=== PATIENT | male | born 1970 | race Two or more races ===

== ENCOUNTER 2018-01-14 17:59 | Emergency (ER) | payer BC, OTHER ==
--- NOTE | 2018-01-14 18:42 | EDM.PDOC ---
ED HPI GENERAL MEDICAL PROBLEM - General Chief Complaint: Genitourinary Problem Stated Complaint: TROUBLE PASSING KIDNEY STONE Time Seen by Provider: 01/14/18 18:41 Source of Information: Reports: Patient History Limitations: Reports: No Limitations - History of Present Illness INITIAL COMMENTS - FREE TEXT/NARRATIVE: 47-year-old male presents to the ED with trouble voiding. For the last 2 weeks she's been having intermittent flank pain which she believed was secondary to kidney stones which he has passed many in the past. He felt it pass from his bladder into his penile urethra this morning with first void. Since then he's had to push terribly hard and bear down to get any water or urine output. Therefore peers the stone is become impacted in the penile or prostatic urethra. He has noted intermittent blood in his urine off and on for the last 2 weeks and believed he was passing a stone. No associated fever chills nausea or vomiting. She can feel the stone in his penile urethra right at the base of the shaft but is too painful to move. This has never occurred to him in the past. Onset: Today Onset Date: 01/14/18 Onset Time: 06:00 Duration: Hour(s): Location: Reports: Pelvis (Pain in his penile shaft with difficulty voiding. Squeeze out only a small amount of urine at a time) Severity: Moderate Improves with: Reports: None Worsens with: Reports: None Context: Reports: Other ([place] a stone he believes pass from his bladder into his penile urethra this morning upon first void but the stone did not come out.) . Denies: Activity, Exercise, Lifting, Sick Contact, Trauma Associated Symptoms: Reports: Other (Continued feeling of dysuria and need to void but unable to pass his water unless he bears down very hard he can get of it of urine out.) Treatments LEADERSHIP DEVELOPMENT CONSULTANT: Reports: Other (see below) (None.) - Related Data Allergies Allergy/AdvReac Type Severity Reaction Status Date / Time No Known Allergies Allergy Verified 01/14/18 18:10 Home Meds: Home Meds . [No Known Home Meds] 01/14/18 [History] Past Medical History Genitourinary History: Reports: Renal Calculus Endocrine/Metabolic History: Reports: Diabetes, Type I Social & Family History - Tobacco Use Smoking Status *Q: Current Every Day Smoker Years of Tobacco use: 28 Packs/Tins Daily: 1 - Recreational Drug Use Recreational Drug Use: No - Living Situation & Occupation Living situation: Reports: (But legally .) Occupation: Employed ED ROS GENERAL - Review of Systems Review Of Systems: See Below Constitutional: Reports: No Symptoms HEENT: Reports: No Symptoms Respiratory: Reports: No Symptoms Cardiovascular: Reports: No Symptoms Endocrine: Reports: No Symptoms GI/Abdominal: Reports: No Symptoms : Reports: Dysuria, Urgency, Other (Pain in his penis.) Musculoskeletal: Reports: No Symptoms Skin: Reports: No Symptoms ED EXAM, RENAL/ - Physical Exam Exam: See Below Exam Limited By: No Limitations General Appearance: Alert, WD/WN, No Apparent Distress Respiratory/Chest: No Respiratory Distress, Lungs Clear, Normal Breath Sounds Cardiovascular: Normal Peripheral Pulses, Regular Rate, Rhythm, No Edema, No Murmur GI/Abdominal: Normal Bowel Sounds, Soft, Non-Tender, No Organomegaly, No Abnormal Bruit, Pelvis Stable, Tender (Slightly tender suprapubically with a fullness.), Other (Obese abdomen. Limits ability to palpate solid organs.) (Male) Exam: Other (I can feel a palpable stone in the base of the shaft of his penis on slight invagination of the superior aspect of the scrotum.) Back Exam: Normal Inspection, Full Range of Motion. No: CVA Tenderness (L), CVA Tenderness (R) Extremities: Normal Inspection, Normal Range of Motion, Non-Tender, No Pedal Edema Neurological: Alert, Oriented, CN II-XII Intact, Normal Cognition, Normal Gait Course - Vital Signs Last Recorded V/S: Last Vital Signs Temp 36.8 C 01/14/18 18:10 Pulse 87 01/14/18 18:10 Resp 18 01/14/18 20:49 BP 141/95 H 01/14/18 18:10 Pulse Ox 98 01/14/18 20:49 - Orders/Labs/Meds Orders: Active Orders 24 hr Category Date Time Status Pelvis 1V or 2V [CR] Stat Exams 01/14/18 18:48 Taken Lactated Ringers [Ringers, Lactated] 1,000 ml Med 01/14/18 20:00 Active IV ASDIRECTED Medication Orders Lactated Ringer's (Ringers, Lactated) 1,000 mls @ 75 mls/hr IV ASDIRECTED SHIRLEY Last Admin: 01/14/18 20:15 Dose: 75 mls/hr Labs: Laboratory Tests 01/14/18 01/14/18 01/14/18 Range/Units 18:40 20:40 20:40 WBC 14.70 H (4.23-9.07) K/mm3 RBC 4.43 L (4.63-6.08) M/mm3 Hgb 13.8 (13.7-17.5) gm/L Hct 39.4 L (40.1-51.0) % MCV 88.9 (79.0-92.2) fl MCH 31.2 (25.7-32.2) pg MCHC 35.0 (32.2-35.5) g/dl RDW Std Deviation 42.0 (35.1-43.9) fL Plt Count 276 (163-337) K/mm3 MPV 9.6 (9.4-12.3) fl Neutrophils % (Manual) 66 H (40-60) % Band Neutrophils % 0 (0-10) % Lymphocytes % (Manual) 25 (20-40) % Atypical Lymphs % 0 % Monocytes % (Manual) 8 (2-10) % Eosinophils % (Manual) 1 (0.8-7.0) % Basophils % (Manual) 0 L (0.2-1.2) Platelet Estimate Adequate RBC Morph Comment Normal Sodium 139 (136-145) mEq/L Potassium 3.8 (3.5-5.1) mEq/L Chloride 102 (98-107) mEq/L Carbon Dioxide 27 (21-32) mEq/L Anion Gap 13.8 (5-15) BUN 11 (7-18) mg/dL Creatinine 0.8 (0.7-1.3) mg/dL Est Cr Clr Drug Dosing 115.38 mL/min Estimated GFR (MDRD) > 60 (>60) mL/min BUN/Creatinine Ratio 13.8 L (14-18) Glucose 161 H (74-106) mg/dL Calcium 8.6 (8.5-10.1) mg/dL Total Bilirubin 0.6 (0.2-1.0) mg/dL AST 14 L (15-37) U/L ALT 27 (16-63) U/L Alkaline Phosphatase 86 (46-116) U/L Total Protein 7.1 (6.4-8.2) g/dl Albumin 3.7 (3.4-5.0) g/dl Globulin 3.4 gm/dL Albumin/Globulin Ratio 1.1 (1-2) Urine Color Yellow (Yellow) Urine Appearance Clear (Clear) Urine pH 6.0 (5.0-8.0) Ur Specific [place] 1.025 (1.005-1.030) Urine Protein 1+ H (Negative) Urine Glucose (UA) 1+ H (Negative) Urine Ketones Negative (Negative) Urine Occult Blood 2+ H (Negative) Urine Nitrite Negative (Negative) Urine Bilirubin Negative (Negative) Urine Urobilinogen 0.2 (0.2-1.0) Ur Leukocyte Esterase 2+ H (Negative) Urine RBC 30-40 H (0-5) /hpf Urine WBC 40-50 H (0-5) /hpf Ur Epithelial Cells 5-10 H (0-5) /hpf Urine Bacteria Many H (FEW) /hpf Urine Mucus Many H (FEW) /hpf Meds: Medications Generic Name Dose Route Start Last Admin Trade Name Frebradly PRN Reason Stop Dose Admin Lactated Ringer's 1,000 mls @ 75 mls/hr 01/14/18 20:00 01/14/18 20:15 Ringers, Lactated IV 75 mls/hr ASDIRECTED SHIRLEY Administration Discontinued Medications Generic Name Dose Route Start Last Admin Trade Name Freq PRN Reason Stop Dose Admin Fentanyl Confirm 01/14/18 20:11 Sublimaze Administered 01/14/18 20:12 Dose 100 mcg .ROUTE .STK-MED ONE Lidocaine HCl Confirm 01/14/18 20:14 Xylocaine-Mpf 1% Administered 01/14/18 20:15 Dose 4 mls @ as directed .ROUTE .STK-MED ONE Ketamine HCl Confirm 01/14/18 20:17 Ketalar Administered 01/14/18 20:18 Dose 500 mg .ROUTE .STK-MED ONE Lidocaine HCl 5 ml 01/14/18 18:47 01/14/18 18:55 Xylocaine 2% Jelly TOP 01/14/18 18:48 Not Given ONETIME ONE Lidocaine HCl Confirm 01/14/18 18:53 01/14/18 19:23 Xylocaine 2% Jelly Administered 01/14/18 18:54 Not Given Dose 10 ml .ROUTE .STK-MED ONE Lidocaine HCl 10 ml 01/14/18 18:55 01/14/18 18:55 Xylocaine 2% Jelly MUCMEM 01/14/18 18:56 10 ml ONETIME ONE Administration Lidocaine HCl 10 ml 01/14/18 19:17 01/14/18 19:19 Xylocaine 2% Jelly MUCMEM 01/14/18 19:18 10 ml ONETIME ONE Administration Metoclopramide HCl Confirm 01/14/18 20:14 Reglan Administered 01/14/18 20:15 Dose 10 mg .ROUTE .STK-MED ONE Midazolam HCl Confirm 01/14/18 20:11 Versed 1 Mg/Ml Administered 01/14/18 20:12 Dose 2 mg .ROUTE .STK-MED ONE Propofol Confirm 01/14/18 20:12 Diprivan 20 Ml Administered 01/14/18 20:13 Dose 200 mg .ROUTE .STK-MED ONE Propofol Confirm 01/14/18 20:13 Diprivan 20 Ml Administered 01/14/18 20:14 Dose 200 mg .ROUTE .STK-MED ONE - Radiology Interpretation Free Text/Narrative:: 47-year-old male arrives in the ED with trouble voiding. He has to bear down extremely hard to get any urine out since 0600 hrs. this morning when he had his first void when he will awoke. Patient has had back pain off and on for the last 2 weeks simply to his passing a stone. He's had kidney stones many times in the past. He's noticed blood in his urine intermittently. This morning upon the first void he felt like the stone had come from his bladder and wedged into his penile urethra. Says really all day he is put up with urgency and dysuria but has been unable unable to pass the stone. Michele plenty of fluids. He can feel the stone at the base of the shaft of his penis which means it's distal to the prostatic urethra. Plan x-ray of his pelvis to include the penis to be done to see how large the stone is. - Re-Assessments/Exams Free Text/Narrative Re-Assessment/Exam: 01/14/18 19:15: Tone is about 8.1 x 8.6 mm and is round in appearance distal to the prostate on plain film. Plan will be to anesthetize the penile urethra with viscous lidocaine and see if I can pass a #10 or 12 catheter past the stone and inflate the balloon and pull the stone out. 01/14/18 19:58 attempts to pass a 10 or 12 catheter failed as it is coiled up against the stone. Was also quite uncomfortable for the patient in spite of filling the urethra is much as possible with viscous lidocaine. I will therefore call anesthesia to come and see if they can provide some conscious sedation so that I might be able to milk the stone out of the prostatic urethra by hand wind a more firmer coud-tip catheter to pass by the stone when he is relaxed and again pull the stone out. Failing this he will require urological consultation and management with likely need to pursue stone back into the bladder and crush it and remove the pieces. 01/14/18 20:20: Even with the aid of CO[employer] propofol to provide sedation I was unable to move the stone wedged within the penile urethra. By invaginating this appear part of the scrotum I can easily feel the stone that I was in the unable to budge it on multiple attempts. Attempted passage 14-gauge coud tipped catheter with me holding the stone in place also failed as the catheter just coiled when it struck the stone. It is therefore severely impacted. I will therefore make arrangements for him to travel to [facility] in [place] for urology consultation. 01/14/18: 20:30: I spoke with the clinical coordinator at [facility] who then put me in contact with Dr. Nguyễn-- urologist. He agrees that due to urinary retention that he needs to come to [place] for stone removal. He is to travel to the ED and then likely directly to the OR. I will therefore make ground transportation arrangements. This may be somewhat time consuming as our current [facility] ambulance is already in [place] on another transfer. If a second cruise not available then I will have to call [facility] to provide transport which will add another half an hour on to the trip. 01/14/18 21:00: Patient is alert and oriented. He has no recollection of undergoing any procedure. Advised him that we are unsuccessful in that there is at least 750 mils of urine in his bladder on ultrasound. He will therefore need need to travel by a months to [place] for urology consultation and he is in full agreement. Nurse will be written for transport. Placed a urinal between his legs because of bladder spasm intermittently will produce small quantities of urine. He becomes much worse he can receive Dilaudid 1 mg IV and Zofran 4 mg IV. His IV of course was discontinued and is now saline lock. Departure - Departure Time of Disposition: 21:48 Disposition: DC/Tfer to [facility] 02 Clinical Impression: Urinary tract obstruction by kidney stone - Discharge Information Referrals: PCP,None [Primary Care Provider] - Forms: ED Department Discharge Additional Instructions: Patient transferred to [facility] per ambulance after he received conscious sedation here in the ED to try and remove an impacted stone in his penile urethra without success. Dr. Nguyễn-urologist has accepted care. Patient is to travel to the ED and plan will be to take him right to the OR for definitive management. - My Orders Last 24 Hours: My Active Orders 01/14/18 18:48 Pelvis 1V or 2V [CR] Stat 01/14/18 20:00 Lactated Ringers [Ringers, Lactated] 1,000 ml IV ASDIRECTED - Assessment/Plan Last 24 Hours: My Active Orders 01/14/18 18:48 Pelvis 1V or 2V [CR] Stat 01/14/18 20:00 Lactated Ringers [Ringers, Lactated] 1,000 ml IV ASDIRECTED - Problem List Review Problem List Initiated/Reviewed/Updated: No - My Orders Last 24 Hours: My Active Orders 01/14/18 18:48 Pelvis 1V or 2V [CR] Stat 01/14/18 20:00 Lactated Ringers [Ringers, Lactated] 1,000 ml IV ASDIRECTED - Assessment Assessment:: Attempts to pass a 10 [place] and a 12 [place] catheter with the aid of the urethra being anesthetized with lidocaine gel failed to pass by the obstruction and cause the patient a good deal of discomfort. COAT PRESSER came and attended the patient in the ED and provided conscious sedation by way of propofol which worked well to provide sedation. I was able to identify the stone at the base of his penile shaft by invaginating the superior aspect of the scrotum but I was unable to produce the stone in any fashion or form on multiple attempts. I did try pass a 14-gauge coud tipped catheter but again it coiled in front of the stone. Ultrasound reveals 750 mils of urine in his bladder. Patient will thus be transferred to urology services in [place]. - Plan Plan:: Transferred to [facility] for definitive urological management.
[2018-01-14] MEDS ORDERED: Lidocaine 2% Jelly 5 ML Tube TOP ONE (18:47)
[2018-01-14] MEDS ORDERED: Lidocaine 2% Jelly 10 ML Urojet ONE (18:53)
[2018-01-14] MEDS ORDERED: Lidocaine 2% Jelly 10 ML Urojet MUCMEM ONE ×2 (18:55→19:17)
[2018-01-14] MEDS ORDERED: Lactated Ringers 1,000 ML IV SCH (20:00)
[2018-01-14] MEDS ORDERED: fentaNYL 100 MCG/2 ML SDV ONE (20:11)
[2018-01-14] MEDS ORDERED: Midazolam 1 MG/ML 2 ML SDV ONE (20:11)
[2018-01-14] MEDS ORDERED: Propofol 200 MG/20 ML SDV ONE ×2 (20:12→20:13)
[2018-01-14] MEDS ORDERED: Lidocaine 1% 4 ML ONE (20:14)
[2018-01-14] MEDS ORDERED: Metoclopramide 10 MG/2 ML SDV ONE (20:14)
[2018-01-14] MEDS ORDERED: Ketamine 500 mg/10 ML MDV ONE (20:17)
--- NOTE | 2018-01-14 20:49 | PCM.PREANE ---
Preanesthetic Assessment - Anesthesia/Transfusion/Family Hx Anesthesia History: No Prior Anesthesia Family History of Anesthesia Reaction: No Transfusion History: No Prior Transfusion(s) - Review of Systems General: No Symptoms Pulmonary: Other (Smokes 1ppd) Cardiovascular: No Symptoms Gastrointestinal: No Symptoms Neurological: No Symptoms Other: Reports: Diabetes (Prediabetes controlled with diet.) - Physical Assessment NPO Status Date: 01/14/18 NPO Status Time: 08:00 O2 Sat by Pulse Oximetry: 98 Respiratory Rate: 18 Vital Signs: Last Vital Signs Temp 36.8 C 01/14/18 18:10 Pulse 87 01/14/18 18:10 Resp BP 141/95 H 01/14/18 18:10 Pulse Ox 98 01/14/18 18:10 Height: 1.75 m Weight: 123.831 kg ASA Class: 2 Mental Status: Alert & Oriented x3 Airway Class: Mallampati = 3 Dentition: Reports: Normal Dentition Thyro-Mental Finger Breadths: 2 Mouth Opening Finger Breadths: 2 ROM/Head Extension: Full Lungs: Clear to Auscultation, Normal Respiratory Effort Cardiovascular: Regular Rate, Regular Rhythm - Lab Values: Laboratory Last Values WBC 14.70 K/mm3 (4.23-9.07) H 01/14/18 20:40 RBC 4.43 M/mm3 (4.63-6.08) L 01/14/18 20:40 Hgb 13.8 gm/L (13.7-17.5) 01/14/18 20:40 Hct 39.4 % (40.1-51.0) L 01/14/18 20:40 MCV 88.9 fl (79.0-92.2) 01/14/18 20:40 MCH 31.2 pg (25.7-32.2) 01/14/18 20:40 MCHC 35.0 g/dl (32.2-35.5) 01/14/18 20:40 RDW Std Deviation 42.0 fL (35.1-43.9) 01/14/18 20:40 Plt Count 276 K/mm3 (163-337) 01/14/18 20:40 MPV 9.6 fl (9.4-12.3) 01/14/18 20:40 Urine Color Yellow (Yellow) 01/14/18 18:40 Urine Appearance Clear (Clear) 01/14/18 18:40 Urine pH 6.0 (5.0-8.0) 01/14/18 18:40 Ur Specific [place] 1.025 (1.005-1.030) 01/14/18 18:40 Urine Protein 1+ (Negative) H 01/14/18 18:40 Urine Glucose (UA) 1+ (Negative) H 01/14/18 18:40 Urine Ketones Negative (Negative) 01/14/18 18:40 Urine Occult Blood 2+ (Negative) H 01/14/18 18:40 Urine Nitrite Negative (Negative) 01/14/18 18:40 Urine Bilirubin Negative (Negative) 01/14/18 18:40 Urine Urobilinogen 0.2 (0.2-1.0) 01/14/18 18:40 Ur Leukocyte Esterase 2+ (Negative) H 01/14/18 18:40 Urine RBC 30-40 /hpf (0-5) H 01/14/18 18:40 Urine WBC 40-50 /hpf (0-5) H 01/14/18 18:40 Ur Epithelial Cells 5-10 /hpf (0-5) H 01/14/18 18:40 Urine Bacteria Many /hpf (FEW) H 01/14/18 18:40 Urine Mucus Many /hpf (FEW) H 01/14/18 18:40 - Allergies Allergies/Adverse Reactions: Allergies Allergy/AdvReac Type Severity Reaction Status Date / Time No Known Allergies Allergy Verified 01/14/18 18:10 - Acknowledgements Anesthesia Type Planned: MAC Pt an Appropriate Candidate for the Planned Anesthesia: Yes Alternatives and Risks of Anesthesia Discussed w Pt/Guardian: Yes Pt/Guardian Understands and Agrees with Anesthesia Plan: Yes PreAnesthesia Questionnaire Genitourinary History: Reports: Renal Calculus Endocrine/Metabolic History: Reports: Diabetes, Type I - SUBSTANCE USE Smoking Status *Q: Current Every Day Smoker Recreational Drug Use History: No - HOME MEDS Home Medications: Home Meds . [No Known Home Meds] 01/14/18 [History] - CURRENT (IN HOUSE) MEDS Current Meds: Current Medications Lactated Ringer's (Ringers, Lactated) 1,000 mls @ 75 mls/hr IV ASDIRECTED SHIRLEY Last Admin: 01/14/18 20:15 Dose: 75 mls/hr Discontinued Medications Fentanyl (Sublimaze) Confirm Administered Dose 100 mcg .ROUTE .STK-MED ONE Stop: 01/14/18 20:12 Lidocaine HCl (Xylocaine-Mpf 1%) Confirm Administered Dose 4 mls @ as directed .ROUTE .STK-MED ONE Stop: 01/14/18 20:15 Ketamine HCl (Ketalar) Confirm Administered Dose 500 mg .ROUTE .STK-MED ONE Stop: 01/14/18 20:18 Lidocaine HCl (Xylocaine 2% Jelly) 5 ml TOP ONETIME ONE Stop: 01/14/18 18:48 Last Admin: 01/14/18 18:55 Dose: Not Given Lidocaine HCl (Xylocaine 2% Jelly) Confirm Administered Dose 10 ml .ROUTE .ST- MED ONE Stop: 01/14/18 18:54 Last Admin: 01/14/18 19:23 Dose: Not Given Lidocaine HCl (Xylocaine 2% Jelly) 10 ml MUCMEM ONETIME ONE Stop: 01/14/18 18:56 Last Admin: 01/14/18 18:55 Dose: 10 ml Lidocaine HCl (Xylocaine 2% Jelly) 10 ml MUCMEM ONETIME ONE Stop: 01/14/18 19:18 Last Admin: 01/14/18 19:19 Dose: 10 ml Metoclopramide HCl (Reglan) Confirm Administered Dose 10 mg .ROUTE .STK-MED ONE Stop: 01/14/18 20:15 Midazolam HCl (Versed 1 Mg/Ml) Confirm Administered Dose 2 mg .ROUTE .STK-MED ONE Stop: 01/14/18 20:12 Propofol (Diprivan 20 Ml) Confirm Administered Dose 200 mg .ROUTE .STK-MED ONE Stop: 01/14/18 20:13 Propofol (Diprivan 20 Ml) Confirm Administered Dose 200 mg .ROUTE .STK-MED ONE Stop: 01/14/18 20:14
--- NOTE | 2018-01-15 10:01 | CR ---
Pelvis: AP view of the pelvis was obtained. Calcification is identified within the soft tissues below the pubic symphysis possibly due to stone impacted in the urethra. Bony structures appear within normal limits. Impression: 1. Calcification projected within the soft tissues possibly representing urethral calculus. Diagnostic code #5
== END 2018-01-14 22:00 ==
LOC: JD.ED 17:59
DX: N13.9 Obstructive and reflux uropathy, unspecified (principal); N20.0 Calculus of kidney; E10.9 Type 1 diabetes mellitus without complications
CPT/HCPCS: 36415; 72170; 80053; 81001; 85007; 85027; 99285; J2001; J2250; J2765; J3010; J7120; 00918; 96360; 96361; 99283; J2704